=== PATIENT | male | born 1990 | race Caucasian/White ===

== ENCOUNTER → 2020-10-30 16:12 | Outpatient (BNVA) | payer BC, SELFPAY | PROVIDERS: PCP Nurse Practitioner Family; Visit Provider Nurse Practitioner Family | DX: S62.609A Fracture of unspecified phalanx of unspecified finger, initial encounter for closed fracture (principal); X58.XXXA Exposure to other specified factors, initial encounter | CPT/HCPCS: 73130 ==

== ENCOUNTER → 2020-11-27 12:00 | Outpatient (BNVA) | payer BC, SELFPAY | PROVIDERS: PCP Nurse Practitioner Family; Visit Provider Nurse Practitioner Family | DX: R11.0 Nausea (principal); R10.9 Unspecified abdominal pain; Z79.899 Other long term (current) drug therapy; Z13.6 Encounter for screening for cardiovascular disorders | CPT/HCPCS: 80053; 80061; 81003; 82150; 83036; 83721; 84443; 85025; 85651; 86140 ==

== ENCOUNTER 2020-12-04 06:37 | Outpatient (CLI) | payer BC, SELFPAY ==
--- NOTE | 2020-12-04 07:15 | US_ITS ---
WS: [id number] ULTRASOUND ABDOMEN CLINICAL INFORMATION: R10.9 - Unspecified abdominal pain COMPARISON: None. FINDINGS: Liver Size: Enlarged Craniocaudal length: 18.2 cm. Echogenicity: Coarse with fatty infiltration Surface nodularity: None. Mass (size and location): None. Bile ducts Intrahepatic ducts: Normal. Common bile duct diameter: 0.3 cm. Gallbladder Normal. Gallstones: None. Gallbladder sludge: None. Gallbladder wall thickening: None. Pericholecystic fluid: None. Sonographic Carson sign: Absent. Pancreas Normal as visualized. Spleen Splenomegaly: Present Craniocaudal length: 17.0 cm. Right kidney: Normal. Hydronephrosis: None. Size: 10.7 cm x 5.1 cm x 5.8 cm Left kidney: Normal. Hydronephrosis: None. Size: 11.2 cm x 5.9 cm x 5.3 cm. Abdominal aorta and IVC Visualized portions are normal. Ascites: None. US/US abdomen complete* [id number] IMPRESSION: 1. Hepatomegaly with diffuse fatty infiltration. 2. Splenomegaly. 3. No hydronephrosis in either kidney. 4. Gallbladder is normal. 5. Normal common bile duct.
== END 2020-12-04 06:38 | disposition home or self-care (01) ==
LOC: RAD 06:40
PROVIDERS: PCP Nurse Practitioner Family; Visit Provider Nurse Practitioner Family
DX: R10.9 Unspecified abdominal pain (principal); R16.2 Hepatomegaly with splenomegaly, not elsewhere classified; K76.0 Fatty (change of) liver, not elsewhere classified
CPT/HCPCS: 76700

== ENCOUNTER 2020-12-15 10:48 | Outpatient (CLI) | payer BC, SELFPAY ==
--- NOTE | 2020-12-15 11:00 | CT_ITS ---
WS: [id number] Exam: CT abdomen w con* [id number] Date/Time of Exam: 12/15/2020 10:51 AM Reason For Exam: R10.9 - Unspecified abdominal pain DLP: 1023.[address] scans at [facility] use at least one of these dose optimization techniques: automat ed exposure control; mA and/or kV adjustment per patient size (includes targeted exams where dose is matched to clinical indication); or iterative reconstruction. Lower lung zones are clear. The liver, gallbladder, spleen, stomach and pancreas appear normal. Lisseth l adrenal glands. The abdominal aorta is normal in caliber. The portal vein and IVC are patent. Unrem arkable kidneys. No free air. No lymphadenopathy. Small bowel loops are normal in caliber. No signifi cant large bowel abnormality noted. Normal appendix visualized. No destructive bone lesions. No abdom inal wall defect. CT/CT abdomen w con* [id number] IMPRESSION: 1. No mass, lymphadenopathy or acute finding in the abdomen.
[2020-12-15] MEDS: iohexol 300 mg/mL 100 mL Btl IV (11:08)
[2020-12-15] MEDS: iohexol 300 mg/mL 50 mL Btl PO (11:08)
== END 2020-12-15 10:49 | disposition home or self-care (01) ==
PROVIDERS: PCP Nurse Practitioner Family; Visit Provider Nurse Practitioner Family
DX: R10.9 Unspecified abdominal pain (principal); R16.2 Hepatomegaly with splenomegaly, not elsewhere classified
CPT/HCPCS: 74160; Q9967

== ENCOUNTER 2020-12-25 09:24 | Outpatient (CLI) | payer BC, SELFPAY ==
--- NOTE | 2020-12-25 10:00 | NM_ITS ---
WS: [id number] NUCLEAR MEDICINE HIDA SCAN WITH GALLBLADDER EJECTION FRACTION HISTORY: R10.9 - Unspecified abdominal pain COMPARISON: 04/06/2021 TECHNIQUE: The patient was intravenously injected with 5.6 mCi of TC99m Mebrofenin. Immediate imaging over the right upper quadrant was followed by 5 minute image and additional images for a total of 60 minutes. Normal uptake of radiotracer throughout the liver. Activity identified in the gallbladder at 50 minutes and well distended by 60 minutes. Activity in the proximal small bowel was seen by 10 minutes. Good washout of the radiotracer from the liver by 60 minutes. The patient then drank 8 ounces of Ensure Plus. Ejection fraction at 60 minutes was 39%. Normal GB ej ection fraction is 35-75%. Post fatty meal symptoms: None. NM/NM hepatobiliary w phar* [id number] IMPRESSION: 1. Normal HIDA scan. 2. Mild delayed filling of the gallbladder. The ejection fraction is low henny l. Gallbladder only mildly distended. Consider chronic cholecystitis as a possi ble etiology.
== END 2020-12-25 09:25 | disposition home or self-care (01) ==
LOC: RAD 09:26
PROVIDERS: PCP Nurse Practitioner Family; Visit Provider Surgery
DX: R10.9 Unspecified abdominal pain (principal)
CPT/HCPCS: 78227; A9537

== ENCOUNTER → 2023-09-21 11:06 | Outpatient (BNVA) | payer BC, SELFPAY | PROVIDERS: PCP Nurse Practitioner Family; Visit Provider Nurse Practitioner Family | DX: M10.9 Gout, unspecified (principal) | CPT/HCPCS: 80053; 84550; 86140 ==

== ENCOUNTER → 2024-04-25 15:20 | Outpatient (BNVA) | payer BC, SELFPAY | PROVIDERS: PCP Nurse Practitioner Family; Visit Provider Nurse Practitioner Family | DX: K81.1 Chronic cholecystitis (principal); K76.0 Fatty (change of) liver, not elsewhere classified; Z13.6 Encounter for screening for cardiovascular disorders; M10.9 Gout, unspecified; Z79.899 Other long term (current) drug therapy; E55.9 Vitamin D deficiency, unspecified | CPT/HCPCS: 80053; 80061; 81003; 82150; 82306; 83036; 83690; 84443; 84550; 85025 ==

== ENCOUNTER → 2025-01-01 08:49 | Outpatient (BNVA) | payer BC, SELFPAY | PROVIDERS: PCP Nurse Practitioner Family; Visit Provider Emergency Medicine | DX: M25.562 Pain in left knee (principal); M10.9 Gout, unspecified; K76.0 Fatty (change of) liver, not elsewhere classified; R79.89 Other specified abnormal findings of blood chemistry | CPT/HCPCS: 73562; 80053; 84550; 85025 ==